=== PATIENT | female | born 2000 | race Caucasian/White ===

== ENCOUNTER 2018-07-12 22:29 | Emergency (ER) | payer OTHER ==
[2018-07-12] MEDS ORDERED: Ketorolac Tromethamine 30 MG/ML VIAL ONE (22:42)
[2018-07-12] MEDS ORDERED: Ibuprofen 200 MG TAB ONE (22:44)
--- NOTE | 2018-07-12 23:08 | RAD ---
THREE VIEWS OF THE RIGHT WRIST: 07/12/18 COMPARISON: None. HISTORY: Injury, trauma, pain. FINDINGS: There is no widening of the scapholunate interval. The radiocarpal joint appears unremarkable. No dis placed fracture or dislocation. IMPRESSION: No acute findings. If symptoms persists, followup in 7-10 days with dedicated scaphoid views advised. POS: [facility]
--- NOTE | 2018-07-12 23:09 | RAD ---
FOUR VIEWS OF THE RIGHT ELBOW: 07/12/18 COMPARISON: None. HISTORY: Fall, trauma, pain. FINDINGS: There is no elbow joint effusion. There is no displaced fracture or evidence of dislocation seen. IMPRESSION: No acute findings. POS: [facility]
== END 2018-07-12 23:14 | disposition home or self-care (01) ==
LOC: SCSER 22:29
DX: M25.531 Pain in right wrist (principal); F17.210 Nicotine dependence, cigarettes, uncomplicated; W01.0XXA Fall on same level from slipping, tripping and stumbling without subsequent striking against object, initial encounter
CPT/HCPCS: J1885